=== PATIENT | female | born 1955 | race Caucasian/White ===

== ENCOUNTER 2016-08-28 13:58 | Outpatient (CLI) | payer OTHER | END 2016-08-28 13:59 | disposition home or self-care (01) | DX: M85.89 Other specified disorders of bone density and structure, multiple sites (principal) ==

== ENCOUNTER 2016-08-28 14:08 | Outpatient (CLI) | payer OTHER | END 2016-08-28 14:09 | disposition home or self-care (01) | DX: Z12.31 Encounter for screening mammogram for malignant neoplasm of breast (principal) ==

== ENCOUNTER 2016-09-03 07:27 | Outpatient (CLI) | payer OTHER | END 2016-09-03 07:28 | disposition home or self-care (01) | DX: I10 Essential (primary) hypertension (principal); R73.01 Impaired fasting glucose; E78.5 Hyperlipidemia, unspecified ==

== ENCOUNTER 2017-09-16 15:23 | Outpatient (CLI) | payer OTHER ==
--- NOTE | 2017-09-17 17:44 | Mammography Report ---
DIGITAL SCREENING MAMMOGRAM: 09/16/2017 CLINICAL INDICATION: A 61-year-old for screening. COMPARISON: 08/2016, 08/2015, 01/2014, 11/2012, 08/2011, 05/2010. TECHNIQUE: Routine CC and MLO projections were obtained of the breasts. FINDINGS: Scattered fibroglandular tissue is present within the breasts. There are no dominant masses, suspicious microcalcifications, or secondary signs of malignancy. In comparison to the previous studies, there are no significant changes. ASSESSMENT: NO MAMMOGRAPHIC EVIDENCE OF MALIGNANCY. NO SIGNIFICANT INTERVAL CHANGES. RECOMMENDATION: Screening mammography is recommended annually. BIRADS category 1 - negative. STANDARD QUALIFYING STATEMENTS: 1. This examination was reviewed with the aid of Computed-Aided Detection (CAD). 2. A negative or benign imaging report should not delay biopsy if clinically suspicious findings are present. Consider surgical consultation if warranted. More than 5% of cancers are not identified by imaging. 3. Dense breasts may obscure an underlying neoplasm. TD: 09/17/2017 17:42
== END 2017-09-16 15:24 | disposition home or self-care (01) ==
LOC: DI 15:23
PROVIDERS: ATTEND Specialist
DX: Z12.31 Encounter for screening mammogram for malignant neoplasm of breast (principal)
CPT/HCPCS: 77067

== ENCOUNTER 2018-10-22 13:46 | Outpatient (CLI) | payer OTHER ==
--- NOTE | 2018-10-23 08:48 | Mammography Report ---
Reason: SCREENING MAMMO Procedure Date: 10/22/2018 Accession Number: [id number] / [id number] Procedure: [facility] - Screening Mammo w/[facility] CPT Code: FULL RESULT: EXAM: Screening Mammo w/K[facility]on DATE: 10/22/2018 2:16 PM CLINICAL HISTORY: Screening encounter. No reported risk factors. TECHNIQUE: (B) - Bilateral CC and MLO views were obtained. COMPARISON: 09/16/2017 through 02/19/2014. PARENCHYMAL PATTERN: (A) - The breast(s) demonstrate(s) scattered fibroglandular densities. FINDINGS: There are no suspicious masses, calcifications, or areas of distortion. IMPRESSION: Negative examination. BI-RADS category 1. RECOMMENDATION: (ANNUAL) - Recommend routine annual screening mammography. BI-RADS CATEGORY: (1) - Negative. STANDARD QUALIFYING STATEMENTS: 1. This examination was not reviewed with the aid of Computer-Aided Detection (CAD). 2. A negative or benign imaging report should not preclude biopsy if clinically suspicious findings are present. 3. Dense breasts may obscure an underlying neoplasm. 4. This examination was reviewed with the aid of 3D breast imaging (tomosynthesis).
== END 2018-10-22 13:47 | disposition home or self-care (01) ==
LOC: DI 13:46
DX: Z12.31 Encounter for screening mammogram for malignant neoplasm of breast (principal)
CPT/HCPCS: 77063; 77067